=== PATIENT | male | born 1960 | race Caucasian/White ===

== ENCOUNTER → 2021-07-21 | Outpatient (CLI) | payer OTHER ==
[~2021-07-21] MED LIST: FISH OIL 1,0001 EAC9 PO; FLONASE 0.05%50 MCG NARES; METOPROLOL TAR100 MG PO; MULTI VITAMIN1 EACH PO; NORVASC10 MG PO; RAMIPRIL10 MG PO
== END ==
LOC: LAB 07:44
PROVIDERS: ATTEND Student in an Organized Health Care Education/Training Program
DX: Z01.812 Encounter for preprocedural laboratory examination (principal); Z20.822 Contact with and (suspected) exposure to COVID-19

== ENCOUNTER → 2021-07-23 | Outpatient (CLI) | payer OTHER ==
[~2021-07-23] VITALS: Ht 177.8 cm; Wt 74.4 kg
--- NOTE | 2021-07-26 19:07 | PATH ---
[facility] [address] [place] [address] PATHOLOGY RPT PROCEDURE Name: CASEY CHILDS Room #: REG Catalina Mak.#: [id number] Admission: 07/23/21 Date of : 56 Discharge: Report #: [id number] Path Case #: [id number] [facility] Accession Number: [id number] . 01 Material submitted: . PART A: sigmoid colon - SIGMOID COLON POLYP PART B: rectum - RECTAL POLYP . 01 Clinical history: . DTS/COLONOSCOPY/HISTORY OF POLYPS DIVERTICULOSIS, COLON POLYP . 02 Diagnosis: A. Polyp, sigmoid colon polyp, endoscopic biopsy: - Tubular adenoma. - Negative for high grade dysplasia. . B. Polyp, rectal polyp, endoscopic biopsy: - Tubular adenoma. - Negative for high grade dysplasia. (IUV/db; 07/26/2021) LBQ 07/26/2021 1501 Local . 02 Electronically signed: . Hortencia Schwartz MD, Pathologist NPI- [id number] . 01 Gross description: . A. The specimen is received in formalin, labeled "Casey Childs, sigmoid colon polyp". Received is a segment of pale graff tissue measuring 0.4 cm in maximum dimensions. The specimen is submitted entirely in cassette A1. . B. The specimen is received in formalin, labeled "Casey Childs, rectal polyp was ". Received is a segment of light brown tissue measuring 0.7 cm in maximum dimensions. The surgical margin is inked and the segment is bisected. The specimen is submitted entirely in cassette B1. (CAA; 07/25/2021) QAC/QAC 07/25/2021 1258 Local . 02 Pathologist provided ICD-10: D12.5, D12.8 . 02 CPT . 621837, 064856 Specimen Comment: A courtesy copy of this report has been sent to [phone], [place] [address] PATHOLOGY RPT PROCEDURE Name: CASEY CHILDS Room #: REG [facility] Aniya#: [id number] Admission: 07/23/21 Date of : 56 Discharge: Report #: [id number] Path Case #: [id number] Specimen Comment: 1852 Specimen Comment: Report sent to DR. SOLIS / DR EDEN Performed at: [address] [facility] [address], [place], [place] [id number] MD Darnell Haley MD Phone: [phone] Performed at: [address] [id number] MD Hortencia Schwartz MD Phone: [phone]
--- NOTE | 2021-07-27 12:15 | P ---
[facility] [place] [address] PROCEDURE REPORT Name: CASEY LEES Room #: REG [facility].#: [id number] Admission: 07/23/21 Attend Phys: Power Booth Discharge: Date of : 56 Report #: [id number] THIS REPORT FOR: cc: Ramiro Morton MD, Steven A. MD McElhinney, Christian C. MD ~ cc: Ramiro Morton MD DATE OF SERVICE: 07/23/2021 PROCEDURES PERFORMED: Colonoscopy with polypectomies. HISTORY OF PRESENT ILLNESS: The patient is a 61-year-old male with a history of colon polyps, here for routine followup. He denies any symptoms, no family history of colon cancer. DESCRIPTION OF PROCEDURE: The risks and benefits of the procedure were explained to the patient, those risks including but not limited to bleeding, perforation and the risk of sedation. He understood these risks and gave informed consent. Sedation was given using propofol per anesthesia. Next, a digital rectal exam was initially performed, which was normal. Next, using a standard Olympus colonoscope, the scope was placed in the patient's anus and advanced under direct vision to the cecum. The overall prep was good. The cecum and ileocecal valve were normal in appearance. The ascending and transverse colon was normal. Numerous diverticula were noted in the descending and sigmoid colon. No evidence of inflammation. Also in the sigmoid colon was a 6 mm polyp, this was removed by snare cautery. Another 5 mm sessile polyp was noted in the distal rectum, also removed by snare cautery. On retroflexion, small nonbleeding internal hemorrhoids were noted. The scope was then withdrawn and the procedure terminated. The patient tolerated the procedure well. IMPRESSION: 1. Two colonic polyps. 2. Left-sided diverticulosis. 3. Internal hemorrhoids. 4. Otherwise, normal colonoscopy. RECOMMENDATIONS: 1. Await biopsy results. 2. Repeat colonoscopy in [address] [address] PROCEDURE REPORT Name: CASEY LEES Room #: REG JERONIMO Kwan#: [id number] Admission: 07/23/21 Attend Phys: Power Booth Discharge: Date of : 56 Report #: [id number] Thank you for allowing me to participate in his care. <ELECTRONICALLY SIGNED> By: Power Henriquez MD 07/27/21 1215 0954 1241 Power Henriquez MD /nt
== END | disposition home or self-care (01) ==
LOC: GI 08:49
PROVIDERS: ATTEND Specialist
DX: Z12.11 Encounter for screening for malignant neoplasm of colon (principal); Z86.010 Personal history of colon polyps; D12.5 Benign neoplasm of sigmoid colon; D12.8 Benign neoplasm of rectum; K57.30 Diverticulosis of large intestine without perforation or abscess without bleeding; K64.8 Other hemorrhoids; I10 Essential (primary) hypertension; E78.5 Hyperlipidemia, unspecified; Z98.890 Other specified postprocedural states; Z79.899 Other long term (current) drug therapy
CPT/HCPCS: 62110; 62900